=== PATIENT | female | born 1970 | race Caucasian/White ===

== ENCOUNTER 2018-02-10 22:31 | Emergency (ER) | payer OTHER ==
--- NOTE | 2018-02-10 22:38 | ER Report ---
History and Physical Time Seen By MD: 22:38 HPI/ROS CHIEF COMPLAINT: Left lower extremity swelling HISTORY OF PRESENT ILLNESS: Patient is a 47-year-old female here with complaints of left lower extremity swelling and discomfort. Patient denies prior history of DVT, denies recent long travel, denies chest pain or shortness of breath, exogenous estrogen use. Patient is afebrile at time of evaluation in no acute distress. For the past week she reports intermittent swelling of the lower extremity however today it rapidly swelled and became more uncomfortable. REVIEW OF SYSTEMS: Constitutional: No fever, no chills. Eyes: No discharge. ENT: No sore throat. Cardiovascular: No chest pain, no palpitations. Respiratory: No cough, no shortness of breath. Gastrointestinal: No abdominal pain, no vomiting. Genitourinary: No hematuria. Musculoskeletal: + left leg edema with mild tenderness in posterior leg Skin: No rashes. Neurological: No headache. Allergies: Coded Allergies: No Known Drug Allergies (Verified , 05/16/09) Constitutional Vital Sign - Last 24 Hours 02/10/18 22:39 Temp 98.4 Pulse 72 Resp 16 B/P (MAP) 173/97 Pulse Ox 96 O2 Delivery Room Air Physical Exam General Appearance: The patient is alert, has no immediate need for airway protection and no signs of toxicity. NAD Eyes: Pupils equal and round no pallor or injection. ENT, Mouth: Mucous membranes are moist. Respiratory: There are no retractions, lungs are clear to auscultation. Cardiovascular: Regular rate and rhythm. Gastrointestinal: Abdomen is soft and non tender, no masses, bowel sounds normal. Neurological: No focal deficits Skin: Warm and dry, no rashes. Musculoskeletal: Neck is supple non tender. Extremities + left leg edema with TTP left posterior thigh DIFFERENTIAL DIAGNOSIS: After history and physical exam differential diagnosis was considered for DVT, venous stasis, musculoskeletal pain, CHF Medical Decision Making EKG/Imaging Imaging VENOUS DOPP LOW LEFT EXTREMITY HISTORY: left leg swelling COMPARISON STUDIES: none FINDINGS: Grayscale compression, duplex and color Doppler interrogation of the left lower extremity deep veins from common femoral vein to proximal calf was performed. The greater saphenous vein was evaluated using similar technique. Common femoral vein negative Femoral vein negative Deep femoral vein - negative Popliteal vein negative Visualized deep calf veins negative Greater saphenous vein in the proximal thigh negative Popliteal fossa: negative Impression: 1. Negative left leg for DVT ED Course/Re-evaluation ED Course Patient is a 47-year-old female here with complaints of left lower extremity swelling and discomfort. Patient denies prior history of DVT, denies recent long travel, denies chest pain or shortness of breath, exogenous estrogen use. Patient is afebrile at time of evaluation in no acute distress. For the past week she reports intermittent swelling of the lower extremity however today it rapidly swelled and became more uncomfortable. Duplex venous imaging of the left lower extremity was ordered to rule out DVT. No DVT was identified. I reviewed the findings with the patient and she voiced understanding and reassurance. Patient was advised to follow-up with her family doctor next week. Patient was advised to return if she developed chest pain, shortness of breath, cyanosis, worsening pain, worsening swelling. Decision to Disposition Date: Feb 10, 2018 Decision to Disposition Time: 23:39 Depart Departure Latest Vital Signs Vital Signs Date Time Temp Pulse Resp B/P (MAP) Pulse Ox O2 Delivery O2 Flow Rate FiO2 02/10/18 22:39 98.4 72 16 173/97 96 Room Air Impression: Primary Impression: Leg swelling Condition: Improved Disposition: HOME OR SELF-CARE Referrals: NUVIA CHOW (PCP) Patient Instructions: Edema (ED) Additional Instructions: Please return promptly if you develop chest pain, shortness breath, pain, worsening swelling, numbness. MYA SANTANA DO Feb 10, 2018 22:38
[2018-02-10 22:39] VITALS: BP 173/97
--- NOTE | 2018-02-10 23:55 | RADIOLOGY IMAGING REPORT ---
FACILITY: [facility] PATIENT NAME: Pippa Valencia : 1970 MR: [id number] V: [id number] EXAM DATE: ORDERING PHYSICIAN: MYA SANTANA TECHNOLOGIST: Location: [facility] [place] Patient: Pippa Valencia : 1970 Visit/Account:[id number] Date of Sevice: 02/10/2018 VENOUS DOPP LOW LEFT EXTREMITY HISTORY: left leg swelling COMPARISON STUDIES: none FINDINGS: Grayscale compression, duplex and color Doppler interrogation of the left lower extremity deep veins from common femoral vein to proximal calf was performed. The greater saphenous vein was evaluated usi ng similar technique. Common femoral vein negative Femoral vein negative Deep femoral vein - negative Popliteal vein negative Visualized deep calf veins negative Greater saphenous vein in the proximal thigh negative Popliteal fossa: negative Impression: 1. Negative left leg for DVT Report Dictated By: John King MD at 02/10/2018 11:50 PM Report E-Signed By: John King MD at 02/10/2018 11:51 PM WSN:[id number]
== END 2018-02-10 23:57 | disposition home or self-care (01) ==
LOC: ER 22:56
DX: M79.89 Other specified soft tissue disorders (principal)
CPT/HCPCS: 99284